=== PATIENT | female | born 1945 | race Caucasian/White ===

== ENCOUNTER 2022-12-04 12:49 | Emergency (ER) | payer MEDICARE ==
[~2022-12-04] VITALS: Ht 157.5 cm; Wt 85.3 kg
[~2022-12-04 12:49] MED LIST: AMLODIPINE BES2.5 MG PO; AMLODIPINE BESYL5 MG PO; AMOX TR-K CLV1 EAC1; ATENOLOL100 MG PO; ATORVASTATIN CA40 MG PO; CALCIUM + VITA1 EACH PO; DIGOXIN125 MCG PO; FAMOTIDINE20 MG PO; FENOFIBRATE48 MG PO; FLUTICASONE PRO16 GM NAS; FLUZONE HI IM; GABAPENTIN100 MG PO; IPRATROPIUM BRO30 ML INH; LEVOTHYROXINE25 MCG PO; LEVOTHYROXINE50 MCG PO; LISINOPRIL20 MG PO; LISINOPRIL40 MG PO; LUTEIN20 MG PO; MAGNESIUM250 M1 PO; METFORMIN HCL1000 MG PO; METOPROLOL SUC100 MG PO; METOPROLOL TART25 MG PO; OMEPRAZOLE20 MG PO; OMEPRAZOLE40 MG PO; PAXIL20 MG PO; PRAVASTATIN SOD20 MG PO; PREDNISOLONE ACE5 ML OPTH; SERTRALINE HCL50 MG PO; TRAMADOL HCL50 MG PO; WARFARIN SODIU2.5 MG PO; ZESTRIL20 MG PO
--- OUTSIDE RECORDS SUMMARY | 2022-12-04 12:50 | XMS ---
PreManage Notification: KATHERINE PRITCHETT Security Algorithm Developer Events No recent Security Events currently on file [facility] There are no care providers on record at this time. Lesly has no Care Guidelines for this patient. [place] VISIT COUNT (12 MO.) 1 YAMILEX Funes TOTAL 1 NOTE: Visits indicate total known visits. ED/C VISIT TRACKING (12 MO.) 12/04/2022 12:49 YAMILEX Gonzalez OR TYPE: Emergency COMPLAINT: - NOSE BLEED INPATIENT VISIT TRACKING (12 MO.) No inpatient visits to display in this time frame [email or web address]
[2022-12-05] MEDS ORDERED: PATADAY2.5 ML OP (12:04)
== END 2022-12-04 19:29 | disposition home or self-care (01) ==
LOC: ED 12:49
DX: R04.0 Epistaxis (principal); Z79.01 Long term (current) use of anticoagulants; I10 Essential (primary) hypertension; E78.00 Pure hypercholesterolemia, unspecified; E11.9 Type 2 diabetes mellitus without complications; Z88.8 Allergy status to other drugs, medicaments and biological substances; Z91.010 Allergy to peanuts; Z91.013 Allergy to seafood; Z88.2 Allergy status to sulfonamides; Z88.6 Allergy status to analgesic agent; Z79.899 Other long term (current) drug therapy; Z79.84 Long term (current) use of oral hypoglycemic drugs
CPT/HCPCS: 30903; 36415; 85025; 85610; 99283-25; J7121

== ENCOUNTER 2023-07-06 10:47 | Observation (INO) | payer MEDICARE, OTHER ==
[~2023-07-06] VITALS: Ht 157.5 cm; Wt 79.5 kg
--- OUTSIDE RECORDS SUMMARY | ~2023-07-06 | XMS | Continuity of Care Document ---
Demographics + + + | Address | [address] | | | [place] [address] | + + + | Preferred Language | Unknown | + + + | Marital Status | | + + + | Christian Affiliation | Unknown | + + + | Race | White | + + + | Ethnic Group | Not or | + + + Author + + + | Author | [facility] | + + + | Organization | [facility] | + + + | Address | [address] | | | [place], [place] [address] | + + + | Phone | | + + + Care Team Providers + + + + | Care Dowel Pin Man Name | Role | Phone | + + + + Unavailable | Unavailable | + + + + Allergies No information. Encounters No information. Functional Status No information. Immunizations No information. Medications No information. Problems + + + + | date | description | facility | + + + + | 2023-04-17 11:30 | ENCOUNTER FOR THERAPEUTIC | [facility] | | | DRUG LEVEL MONITORING | | + + + + | 2023-04-17 11:30 | [facility] (CURRENT) USE OF | [facility] | | | ANTICOAGULANTS | | + + + + | 2023-05-01 11:40 | UNSPECIFIED ATRIAL | [facility] | | | FIBRILLATION | | + + + + | 2023-05-01 11:40 | ENCOUNTER FOR THERAPEUTIC | [facility] | | | DRUG LEVEL MONITORING | | + + + + | 2023-05-01 11:40 | [facility] (CURRENT) USE OF | [facility] | | | ANTICOAGULANTS | | + + + + | 2023-05-01 11:40 | PRESENCE OF PROSTHETIC | [facility] | | | HEART VALVE | | + + + + | 2023-05-15 11:33 | UNSPECIFIED ATRIAL | [facility] | | | FIBRILLATION | | + + + + | 2023-05-15 11:33 | ENCOUNTER FOR THERAPEUTIC | [facility] | | | DRUG LEVEL MONITORING | | + + + + | 2023-05-15 11:33 | [facility] ([facility]) USE [facility] | [facility] | | | ANTICOAGULANTS | | + + + + | 2023-05-15 11:33 | PRESENCE OF PROSTHETIC | [facility] | | | HEART VALVE | | + + + + | 2023-05-29 11:05 | UNSPECIFIED ATRIAL | [facility] | | | FIBRILLATION | | + + + + | 2023-05-29 11:05 | ENCOUNTER FOR THERAPEUTIC | [facility] | | | DRUG LEVEL MONITORING | | + + + + | 2023-05-29 11:05 | [facility] ([facility]) USE [facility] | [facility] | | | ANTICOAGULANTS | | + + + + | 2023-05-29 11:05 | PRESENCE OF PROSTHETIC | [facility] | | | HEART VALVE | | + + + + | 2023-06-12 11:37 | ENCOUNTER FOR THERAPEUTIC | [facility] | | | DRUG LEVEL MONITORING | | + + + + | 2023-06-12 11:37 | [facility] USE [facility] | [facility] | | | ANTICOAGULANTS | | + + + + | 2023-06-26 11:30 | UNSPECIFIED ATRIAL | [facility] | | | FIBRILLATION | | + + + + | 2023-06-26 11:30 | ENCOUNTER FOR THERAPEUTIC | [facility] | | | DRUG LEVEL MONITORING | | + + + + | 2023-06-26 11:30 | [facility] ([facility] USE OF | [facility] | | | ANTICOAGULANTS | | + + + + | 2023-06-26 11:30 | PRESENCE OF PROSTHETIC | [facility] | | | HEART VALVE | | + + + + Procedures No information. Results/Labs No information. Social History +--------+ + + | date | description | facility | +--------+ + + Vital Signs No information."
--- OUTSIDE RECORDS SUMMARY | ~2023-07-06 | XMS | Continuity of Care Document ---
Demographics + + + | Address | [address] | | | [place] [address] | + + + | Preferred Language | Unknown | + + + | Marital Status | | + + + | Sikh Affiliation | Unknown | + + + | Race | White | + + + | Ethnic Group | Not or | + + + Author + + + | Author | [facility] | + + + | Organization | [facility] | + + + | Address | [address] | | | [place], [place] [address] | + + + | Phone | | + + + Care Team Providers + + + + | Care Digital Product Specialist Name | Role | Phone | + [...] + + + | 2023-04-17 11:30 | [facility]CURRENT) USE OF | [facility] | | | ANTICOAGULANTS | | + + + + | 2023-05-01 11:40 | UNSPECIFIED ATRIAL | [facility] | | | FIBRILLATION | | + + + + | 2023-05-01 11:40 | ENCOUNTER FOR THERAPEUTIC | [facility] | | | DRUG LEVEL MONITORING | | + + + + | 2023-05-01 11:40 | [facility] (CURRENT) USE OF | [facility] | | [...] + + + | 2023-05-15 11:33 | [facility] (CURRENT) USE OF | [facility] | | [...] + + + | 2023-05-29 11:05 | [facility] (CURRENT) USE OF | [facility] | | | ANTICOAGULANTS | | + + + + | 2023-05-29 11:05 | PRESENCE OF PROSTHETIC | [facility] | | | HEART VALVE | | + + + + | 2023-06-12 11:37 | ENCOUNTER FOR THERAPEUTIC | [facility] | | | DRUG LEVEL MONITORING | | + + + + | 2023-06-12 11:37 | [facility] (CURRENT) USE OF | [facility] | | | ANTICOAGULANTS | | + + + + | 2023-06-26 11:30 | UNSPECIFIED ATRIAL | [facility] | | | FIBRILLATION | | + + + + | 2023-06-26 11:30 | ENCOUNTER FOR THERAPEUTIC | [facility] | | | DRUG LEVEL MONITORING | | + + + + | 2023-06-26 11:30 | [facility] (CURRENT) USE OF | [facility] | | [...]
[~2023-07-06 10:47] MED LIST changes: +PATADAY2.5 ML OU
[2023-07-06 13:13] LABS: HEMATOCRIT 39.6 % (35.0-50.0); HEMOGLOBIN 12.8 g/dL (12.0-18.0); MCH 28.6 (27-36); MCHC 32.3 g/dl (30-36); MCV 88.4 fl (81-99); PLATELET COUNT 170 K/uL (140-440); RBC 4.48 M/ul (4.3-5.7); RDW 14.1 (10.5-15.0)
[2023-07-06 13:24] LABS: INR 2.7 (0.80-1.30); PROTIME 27.8 Sec (11.2-14.2)
[2023-07-06 13:29] LABS: ALBUMIN 3.5 g/dL (3.4-5.0); ALBUMIN/GLOBULIN RATIO 0.92 (1.1-2.4); BILIRUBIN, TOTAL 0.6 ng/dL (0.2-1.0); BUN/CREATININE RATIO 13.54 (6.0-28.6); CALCIUM 9.3 mg/dL (8.5-10.1); CREATININE, SERUM 0.96 mg/dL (0.55-1.02); PROTEIN, TOTAL 7.3 g/dL (6.4-8.2)
[2023-07-06 13:35] LABS: LACTIC ACID, BLOOD 2.1 mmol/L (0.4-2.0)
[2023-07-06 13:44] LABS: LYMPHOCYTES, MANUAL DIFF 11; MONOCYTES, MANUAL DIFF 9; NEUTROPHILS, MANUAL DIFF 80
[2023-07-06 14:49] LABS: INFLUENZA B NAA NEGATIVE (NEGATIVE); RESPIRATORY SYNCYTIAL VIR NAA NEGATIVE (NEGATIVE)
[2023-07-06 15:38] VITALS: BP 150/80
--- NOTE | 2023-07-06 15:38 | NUR ---
PT ARRIVES TO ROOM VIA STRETCHER AND THIS RN - PT AAO, VS STABLE, AFEBRILE. PT ABLE TO TRANSFER TO BED BY SELF WITH CONTACT ASSIST. DAUGHTER PRESENT AND ABLE TO ASSIST WITH HEALTH HISTORY. PT DENIES NEEDS FOR PAIN MEDICATION AT THIS TIME.
--- NOTE | 2023-07-06 17:02 | NUR ---
PT UP TO BATHROOM TO VOID WITH PHOTOGRAMMETRIC ENGINEER ASSISTANCE - DENIES PAIN WITH URINATION. BACK TO BED. ABD PLACED UNDER WOUND TO COLLECT DRAINAGE, SEROSANG SCANT. FAMILY REMAINS IN ROOM. CALL LIGHT IN REACH.
[2023-07-06] MEDS ORDERED: CRANBERRY500 M3 PO (17:41)
[2023-07-06] MEDS ORDERED: TYLENOL EXTRA500 MG PO (17:41)
[2023-07-06 18:20] VITALS: BP 156/85
[2023-07-06 20:00] VITALS: BP 145/79
--- NOTE | 2023-07-06 20:15 | NUR ---
THIS RN WAS WALKING DOWN THE HALLWAY, pt SEEN SITTING ON EDGE OF BED ON THE PHONE AND ATTEMPTING TO GET OOB TO GO TO THE BATHROOM. pt EDUCATED ON NEED TO USE CALL LIGHT BEFORE GETTING OOB, ASSISTED SBA TO VOID AND VOIDED 500MLS AND BACK TO BED. BED ALARM ON FOR SAFETY, CALL LIGHT IN REACH. FRESH WATER PROVIDED, NO ADDITIONAL NEEDS OR CONCERNS VERBALIZED.
--- NOTE | 2023-07-06 20:16 | NUR ---
PATIENT IN BED RESTING, REPORT GIVEN BY DAY SHIFT RN. MD CALLED TO CLARIFY LACTATE ORDER, AND HE DOES NOT WISH A REDRAW AT THIS TIME.
--- NOTE | 2023-07-06 20:20 | NUR ---
LATE ENTRY: INFORMED BY PRIMARY RN KRISTIN THAT MD WANTS TO CANCEL REPEAT LACTIC, SEE RN NOTE FROM PRIMARY RN FOR FURTHER DETAILS. SPOKE TO TENISHA IN LAB AT 073O, LAB TO CANCEL ORDER ON THEIR END.
--- NOTE | 2023-07-06 22:55 | NUR ---
CALLED IN TO ROOM, PATIENT UP TO BR WITH SBA, TOLERATED WELL, IS NOW BACK TO BED READING A BOOK WITHOUT COMPLAINT. CALL LITH IN REACH. BLOOD SUGAR WAS 189 AND 3 UNITS PER SS GIVEN.
--- NOTE | 2023-07-07 00:01 | NUR ---
PATIENT CALLED, ASSISTED UP TO BR, THEN BRUSHED TEETH AND WASHED FACE. IS NOW BACK TO BED AND GETTING READY TO GO TO SLEEP. CALL LIGHT WITHIN REACH.
[2023-07-07 03:05] VITALS: BP 126/70
--- NOTE | 2023-07-07 03:07 | NUR ---
PATIENT AWAKE AND SBA ASSIST TO BR. VSS, REMAINS AFEBRILE, DENIES PAIN, NORMALLY WEARS CPAP AT BEDTIME, GIVEN 2 LITERS PER NC, PREFERRED THIS OVER OUR CPAP MACHINE WITH FULL FACE MASK. NO FURTHER CHANGE IN ASSESSMENT, ASSISTED BACK INTO BED, CALL LIGHT IN REACH.
[2023-07-07 05:03] LABS: BASOPHILS 0.2 % (0-2); EOSINOPHILS 0.6 % (0-6); HEMATOCRIT 39.3 % (35.0-50.0); HEMOGLOBIN 12.7 g/dL (12.0-18.0); LYMPHOCYTES 13.6 % (24-44); MCH 28.8 (27-36); MCHC 32.3 g/dl (30-36); MCV 89.1 fl (81-99); MONOCYTES 13.1 % (0-12); NEUTROPHILS 72.5 % (39-80); PLATELET COUNT 176 K/uL (140-440); RBC 4.41 M/ul (4.3-5.7); RDW 14.1 (10.5-15.0)
[2023-07-07 05:11] LABS: ANION GAP 14.5 (7-21); BUN/CREATININE RATIO 14.75 (6.0-28.6); CALCIUM 8.7 mg/dL (8.5-10.1); CREATININE, SERUM 0.61 mg/dL (0.55-1.02); POTASSIUM 3.5 mmol/L (3.5-5.1)
[2023-07-07 05:15] LABS: INR 2.78 (0.80-1.30); PROTIME 28.4 Sec (11.2-14.2)
--- NOTE | 2023-07-07 05:24 | NUR ---
PATIENT HAS SLEPT ON AND OFF TONIGHT, ASSISTED UP SEVERAL TIMES TO AMBULATE WITH SBA TO BR. VSS, MINIMAL DISCOMFORT AND REQUIRED NO MEDICATIN FOR PAIN DURING THE NIGHT. GROIN REMAINS RED AND SWOLLEN WITH TUBING THROUGH SITE REMAINING INTACT. RESTING NOW WITH EYES CLOSED AND NO NOTED DISTRESS. CALL LIGHT WITHIN REACH.
--- NOTE | 2023-07-07 07:49 | NUR ---
REPORT RECEIVED FROM JAYSON FOSTER. PT RESTING IN BED, ALERT AND OREINTED. PT DENIES PAIN AND NAUSEA AT THIS TIME. PT DENIES REQUESTS OR COMPLAINTS AT THIS TIME. PT REPORTS SHE IS HOPING TO GO HOME TODAY. REPORTS SHE FEELS "MUCH BETTER NOW." CALL LIGHT WITHIN REACH. BED RAILS UP.
[2023-07-07 09:32] VITALS: BP 117/57
--- NOTE | 2023-07-07 09:33 | NUR ---
Scheduled medications administered. Vitals and I/Os complete. Pt is afebrile, states no pain at this time, "feeling better". Fresh water and coffee provided. Patient on RA, resting in bed reading. Call light in reach.
--- NOTE | 2023-07-07 09:55 | NUR ---
Call light answered, patient requests SBA to BR for void. Patient steady on feet, no further assistance needed.
--- NOTE | 2023-07-07 10:05 | NUR ---
MORNING ASSESSMENT AND MEDICATION DUE. PT UP TO RESTROOM. STEADY ON FEET. PT REPORTS SHE WOULD LIKE TO HAVE A BOWEL MOVEMENT BUT THINKS SHE NEDS A SUPPOSITORY. MD CONSUTLED RELATED TO WOUND NEAR YEYO AREA. STATES OK TO GIVE MIRALAX. PT THEN STATES "IT'S COMING" AND SHE NO LONGER NEEDS MEDICATION. PT REPORTS 1/10 PAIN IN LEFT YEYO AREA "ONLY WHEN IT TOUCHED." PT REPORTS [facility] TYPICALLY HAS BACK PAIN BUT RIGHT NOW THIS IS 0/10/ PT ALER AND OREITNED TO ALL. PT STEADY ON FEET WITH STAND BY ASSIST. LUNG SOUNDS CLEAR. HEART TONES REGULAR. MILD MURMUR HEARD VALVE REPLACEMENT HEARD. ABDOMEN SOFT AND NON TEDNER. BOWEL TONES ACTIVE. REDNESS TO LEFT LABIA CONTIUES, FIRM IN PLACES, T-TUBE DRAIN IN PLACE. PTS DAUGHTER REPORTS "IT LOOKS MUCH BETTER." SMALL AMOUNT OF SEROUSANGUINOUS DRAINAGE SEEN FROM WOUND AREA. DR HANSON TO ROOM FOR ROUNDS, UPDATED ON PT STATUS. PLAN FOR DISCHARGE REVIEWED WITH PT. NO ADDITIOANL REQUESTS OR COMPLAINTS. CALL LIGHT WITHIN REACH. BED RAILS UP. FAMILY AT BEDSIDE.
--- NOTE | 2023-07-07 10:46 | NUR ---
THIS RN TO ROOM TO CHECK ON PT. PT WORKING WITH PHYSICAL THERAPY. PT UP TO CHAIR AND PIVOTING TO COMODE WITH PHYSICAL THERAPIST. PT TRANSFERS WELL. PT REPORTS PAIN REMAINS WELL CONTROLLED AT 5/10. NO ADDITIONAL REQUESTS OR COMPLAINTS. CALL LIGHT WITHIN REACH. PHYSICAL THERAPIST REMAINS AT BEDSIDE.
[2023-07-07] MEDS ORDERED: AMOX TR-K CLV1 EAC1 PO (10:47)
[2023-07-07] MEDS ORDERED: DOXYCYCLINE HY100 MG PO (10:47)
[2023-07-07 11:29] VITALS: BP 143/62
--- NOTE | 2023-07-07 12:06 | NUR ---
PT BEING DISCHARGED PER DR ORDER. PT PROVIDED AND VERBALIZES UNDERSTANDING OF DISCHARGE EDUCATION. DISCHARGE PACKET PROVIDED TO PT. PT AND DAUGHTER, JAIRO HAD QUESTIONS ABOUT METFORMIN AND COUMADIN, PHARMACIST AT BEDSIDE TO ANSWER QUESTIONS. IV DC'D WITH NO COMPLICATION. PT REPORTS NO PAIN. PT VERBALIZES UNDERSTANDING OF PLAN OF CARE AND FOLLOW UP APPOINTMENTS. PT'S DAUGHTER JAIRO HERE TO TAKE HER FROM HOSPITAL. PT AMBULATORY. PT WHEELED TO FRONT OF HOSPITAL TO GO MEET DAUGHTER.
== END 2023-07-07 12:30 | disposition home or self-care (01) ==
LOC: ED 10:47 → MS 10:48
PROVIDERS: Emergency Medicine; ADMIT Family Medicine; ATTEND Family Medicine
PROC: 0WJN0ZZ Inspection of Female Perineum, Open Approach (ICD-10-PCS; principal; 2023-07-06)
DX: L02.214 Cutaneous abscess of groin (principal); L03.314 Cellulitis of groin; I10 Essential (primary) hypertension; E78.00 Pure hypercholesterolemia, unspecified; E11.9 Type 2 diabetes mellitus without complications; I25.10 Atherosclerotic heart disease of native coronary artery without angina pectoris; I48.91 Unspecified atrial fibrillation; E07.9 Disorder of thyroid, unspecified; Z79.01 Long term (current) use of anticoagulants; Z88.2 Allergy status to sulfonamides; Z79.84 Long term (current) use of oral hypoglycemic drugs
CPT/HCPCS: 36415; 56405; 80048; 80053; 83605; 85025; 85610; 87040; 87070; 87075; 87205; 87502; 94760; 96376; 99284-25; C9803; G0378; J0878; J1815; U0002

== ENCOUNTER 2023-11-22 08:54 | Day surgery (SDC) | payer MEDICARE, OTHER ==
[2023-11-19 09:35] VITALS: BP 161/75
[~2023-11-22] VITALS: Ht 154.9 cm; Wt 80.5 kg
--- NOTE | 2023-11-22 07:51 | NUR ---
SPOKE W/DR. LOMELI REGARDING PTS HX OF AORTIC VALVE REPLACEMENT TO DISCUSS PRE-PROCEDURE ABX CHOICE. VERBAL ORDER RECEIVED TO DC ANCEF AND GIVE 1 GM AMPICILLIN AND 80MG GENTAMICIN. ORDER PLACED IN EMAR.
[~2023-11-22 08:54] MED LIST changes: +AMOX TR-K CLV1 EAC1 PO; +AMPICILLIN SOD IV ONE; +CEFAZOLIN SODIUM 2 GM/20 ML SYR IV SCH; +CRANBERRY500 M3 PO; +DOXYCYCLINE HY100 MG PO; +ENOXAPARIN40 MG/0.4 SUB-Q; +GENTAMICIN SULFATE IV ONE; +HEParin SOD (PORCINE) 5,000 UNIT/0.5 ML SYR SUB-Q SCH; +IBLOOD GLUCOSE TEST STRIP 1 EA TEST VI PRN; +LACTATED RINGER'S 1,000 ML IV SCH; +LIDOCAINE HCL 1% 5 ML SDV INJ ONE; +SODIUM CHLORIDE 0.9% IV ONE; +TYLENOL EXTRA500 MG PO
[2023-11-22 09:05] VITALS: BP 170/84
[2023-11-22 09:50] LABS: INR 1.12 (0.80-1.30)
[2023-11-22] MEDS ORDERED: GENTAMICIN SULFATE 160 MG in DEXTROSE 5% 100 ML IV ONE (10:00)
--- NOTE | 2023-11-22 10:06 | NUR ---
[id number] WITH DR. LOMELI REGARDING PHARMCIST INQUIRING INTO ORDERED GENTAMYCIN DOSE OF 80MG. EXPLAINED THAT GENTAMYCIN IS USUALLY DOSED AT 5MG/KG AND PT IS APPROX 80KG AND WOULD USUALLY RECEIVE 400MG DOSE. DR. LOMELI ORDERED 160MG DOSE INSTEAD. UPDATED PTS EMAR TO REFLECT CHANGE IN DOSE AND PHARMACY WAS INFORMED THAT THIS IS THE DOSE DR. LOMELI WANTS GIVEN. ALSO SPOKE WITH DR. LOMELI ABOUT PT CURRENTLY BEING BRIDGED ON LOVENOX WITH PRE-OP ORDERS OF HEPARIN IN PLACE. DR. LOMELI GAVE VERBAL TO DC HEPARIN ORDER AND NOT TO ADMINISTER. EMAR UPDATED TO REFLECT VERBAL ORDER. PT/INR RESULTS BACK WITH PT OF 14 AND INR 1.12. INFORMED BOTH ANESTHESIA AND DR. LOMELI WHO STATE THIS IS ACCEPTABLE FOR THEM TO PROCEED. IMAGING WAS CALLED AND NOTIFIED PT IS READY FOR THEM.
--- NOTE | 2023-11-22 10:27 | NUR ---
PT LEFT WITH IMAGING DEPARTMENT IN A WHEELCHAIR AND ABX INFUSING ON A PUMP.
[2023-11-22] MEDS ORDERED: propofoL 200 MG/20 ML VIAL ONE (11:18)
[2023-11-22] MEDS ORDERED: KETAMINE in NS 50 MG/5 ML SYR ONE (11:18)
[2023-11-22] MEDS ORDERED: ondansetron HCL 4 MG/2 ML VIAL ONE (11:18)
[2023-11-22] MEDS ORDERED: fentaNYL citrate 100 MCG/2 ML VIAL ONE (11:18)
[2023-11-22] MEDS ORDERED: MAGNESIUM SULFATE 1 GM/2 ML VIAL ONE (11:18)
[2023-11-22] MEDS ORDERED: DEXAMETHASONE SOD PHOS 4 MG/ML VIAL ONE (11:18)
[2023-11-22] MEDS ORDERED: dexmedeTOMIDine HCl 200 MCG/2 ML VIAL ONE (11:18)
[2023-11-22] MEDS ORDERED: SODIUM CHLORIDE 0.9% 40 ML IV ONE (11:19)
[2023-11-22] MEDS ORDERED: ACETAMINOPHEN 1,000 MG/100 ML VIAL ONE (11:19)
[2023-11-22] MEDS ORDERED: LIDOCAINE HCL 2% 5 ML SDV ONE (11:19)
[2023-11-22] MEDS ORDERED: ROCURONIUM BROMIDE 50 MG/5 ML SYR ONE (11:19)
[2023-11-22] MEDS ORDERED: ePHEDrine sulfate 50 MG/ML AMP ONE (12:39)
[2023-11-22] MEDS ORDERED: SODIUM CHLORIDE 0.9% 20 ML IV ONE (12:57)
[2023-11-22] MEDS ORDERED: VASOPRESSIN 20 UNITS/ML VIAL ONE (12:57)
[2023-11-22] MEDS ORDERED: fentaNYL citrate 100 MCG/2 ML VIAL IV PRN (13:45)
[2023-11-22] MEDS ORDERED: ondansetron HCL 4 MG/2 ML VIAL IV PRN (13:45)
[2023-11-22] MEDS ORDERED: IBLOOD GLUCOSE TEST STRIP 1 EA TEST VI PRN (13:45)
[2023-11-22] MEDS ORDERED: NALOXONE HCL 0.4 MG SYR IV PRN (13:45)
[2023-11-22] MEDS ORDERED: PERCOCET 7.5-31 EACH PO (13:57)
[2023-11-22] MEDS ORDERED: TYLENOL EXTRA500 MG PO (13:57)
--- NOTE | 2023-11-22 13:59 | NUR ---
11/22/23 1359 Madeline,Esther 1338 PT ARRIVED TO PACU ON 8L VIA MASK, RESP EVEN AND UNLABORED. JAW THURSDT USED OFF AND ON TO MAINTAIN AIRWAY. 1342 PT WAKES TO TACTILE STIMULI AND IS REORIENTED TO PACU. 1344 O2 REMOVED AND PT ENCOUARGED TO DEEP BREATHE OFF AND ON. 1352 PT REPORTS PAIN "JUST A LITTLE BIT" AND NO NAUSEA. WOODWIND INSTRUMENT REPAIRER GIVING PAIN MEDICATION. O2 SAT LOW TO MID 90S. 1356 PT REPORTS NO CHANGE IN PAIN LEVEL. PT RESTING WITH EYES OPEN LOOKING AROUND.
[2023-11-22] MEDS ORDERED: OXYCODONE/APAP 7.5/325 TAB PO PRN (14:30)
[2023-11-22] MEDS ORDERED: ACETAMINOPHEN 500 MG TAB PO PRN (14:30)
[2023-11-22] MEDS ORDERED: HYDROmorphone HCL 1 MG/ML SYR IV PRN (14:45)
[2023-11-22 15:25] VITALS: BP 143/68
--- NOTE | 2023-11-22 15:54 | NUR ---
PT RETURNED TO DAY SURGERY FROM PACU AT APPROX 1520 ON 2L/NC WITH SATURATIONS OF 97-99%. OMAYRA RN FROM PACU REPORTS PT WITH 20ML OF EBL. VISUALIZED SURGICAL INCISIONS WITH BASKET BOTTOM MACHINE OPERATOR UPON RETURN. PT WITH 2 SURGICAL INCISIONS, ONE ON THE LATERAL L BREAST AND ONE IN THE L AXILLA. BOTH SURGICAL WOUNDS ARE DRESSED WITH STERI STRIPS AND ACTICOAT. SMALL AMT OF SS DRAINAGE TO L AXILLA SURGICAL WOUND DRSG SEEN. BOTH DRSG INTACT. PT WITH CONCNERS OF HER PAIN. UPON RETURN, PT REPORTS HER PAIN IS AT A 0/10, MOMENTS LATER SHE REPORTED "OH THE PAIN IS BUILDING, ITS THE WHOLE BREAST NOW". WHEN ASKED TO RATE HER PAIN, SHE RATES IT AT A 2. THIS IS BELOW HER PREVIOUSLY STATED ACCEPTABLE LEVEL OF 3/10. EDUCATED PT ON HER SURGERY AND THAT SOME PAIN IS TO BE EXPECTED WITH THIS TYPE OF SURGERY, BUT THAT THE GOAL IS TO NOT LET IT BECOME SO BAD OR OUT OF CONTROL THAT YOU ARE UNABLE TO FUNCTION. EXPLAINED TO PT THAT SHE IS NOT LIKELY GOING TO BE "PAIN FREE" WITH MOVEMENT, BUT LONG THE PAIN IS NOT BAD ENOUGH TO INHIBIT OR PREVENT HER FROM MOVING, THAT IS A MORE REALISTIC GOAL. NANCY AT PTS BEDSIDE AND INQUIRING ABOUT POST OF DIRECTIONS AND PAIN MEDICATIONS. UPDATED PT AND HER AUGHTER ON DR. LOMELI PROVIDING PERCOCET RX. GIVEN TO NANCY WHO LEFT TO TAKE RX TO PHARMACY AND GO HOME AND PACK AN OVERNIGHT BAG, SHE IS PLANNING TO STAY OVER NIGHT WITH PT TONIGHT. NANCY INQUIRED IF THERE WOULD BE ENOUGH TIME FOR THIS, AND REASSURED HER THAT PT WOULD BE HERE FOR AT LEAST ANOTHER HOUR, IF NOT LONGER. PT RETRUNED FROM PACU EATING ICE CHIPS. GIVEN ICE WATER, CRACKERS, AND CHOCOLATE PUDDING. BILAT BEDRAILS UP. BED IN LOW POSTION WITH WHEELS LOCKED. CALL LIGHT WITHIN PTS REACH AND INSTRUCTED PT TO CALL. PT DENIES ANY QUESTIONS OR FURTHER NEEDS AT THIS TIME.
[2023-11-22 16:19] VITALS: BP 143/71
--- NOTE | 2023-11-22 16:35 | NUR ---
INTO PTS ROOM FOR ASSESSMENT. NANCY HAS RETURNED AND IS AT PTS BEDSIDE. PT HAS EATEN 2 CUPS OF PUDDING, 4 PACKS OF CRACKERS, AND HAS TAKEN 600ML ICE WATER. PT DENIES NAUSEA AND APPEARS TO HAVE TOLERATED SOLIDS AND FLUIDS WELL W/O ISSUES. PT WITH O2 SATURATION OF 99% ON 2L/NC. TURNED 02 OFF AND MONITORED SATURATIONS OVER THE NEXT 15 MINS. O2 SATS REMAINED STABLE AT 94-99% ON RA. PTS POST OP COMPRESSION KENY PLACED TO HELP STABILIZE BREAST AND MANAGE DISCOMFORT. PT AGREEABLE TO WALK TO RESTROOM AND ATTEMPT VOIDING. ASSITED PT TO SITTING UP ON EDGE OF BED. PT WITH SOME "LIGHTHEADEDNESS". INSTRUCTED PT TO SIT FOR A COUPLE MINS AND SEE IF IT IMPROVES BEFORE MOVING ANY FURTHER. PT COMPLIED WITH REQUEST AND REPORTED RESOLVING. PT ASSITED TO STANDING POSITION AND AMBULATED TO TOILET WITH 1 PERSON MIN ASSIST. PT VOIDING LARGE AMT OF PALE, YELLOW, CLR URINE. ASSITED PT IN AMBULATING BACK TO ROOM. PT REPORTING PAIN OF 1/10 THAT DIMINSHED WITH A FEW MINS REST. CALL LIGHT WITHIN PTS REACH.
[2023-11-22 17:37] VITALS: BP 145/65
--- NOTE | 2023-11-22 17:55 | NUR ---
INTO PTS ROOM FOR REASSEMENT AND DISCHARGE TEACHING. PT REPORTS IMPROVEMENT IN PAIN AFTER PERCOCET WAS GIVEN. APPEARS TO HAVE TOLERATED MED W/O ISSUES NOTED. PT INSTRUCTED TO CALL DR. LOMELI OFFICE ON SUNDAY AND SCHEDULED HER 2 WEEK POST-OP APPT, OFFICE HAS CLOSED TODAY. PT ALSO INSTRUCTED TO HAVE PT/INR DRAWN ON 11/27/23 AT 1000. IV REMOVED, TIP INTACT, PRESSURE DRSG APPLIED WITH GAUZE AND COBAN. PT INSTRUCTED THAT SHE MAY REMOVE IN 15-20 MINS. PT DRESSED WITH DAUGHTERS ASSISTANCE, AMBULATED TO RESTROOM BEFORE LEAVING UNIT IN WC. PT WAS ABLE TO VOID ANOTHER 125 ML PALE, CLR, YELLOW URINE IN ADDITION TO LARGE VOID EARLIER IN DAY POST-OP. PT TRASNPORTED OFF UNIT TO PASSENGER SIDE OF [employer] VEHICLE VIA WC AT APPROX 1755. ALL QUESTIONS AWNSWERED. PT TOOK ALL BELONGINGS WITH HER.
--- NOTE | 2023-11-25 09:47 | OR ---
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 PROCEDURES: 1. Injection of methylene blue dye for sentinel lymph node identification. 2. Left deep axillary sentinel lymph node biopsies (three at minimum). 3. Left partial mastectomy with BING Job Press Operator localization. ANESTHESIA: General LMA, Ken Pascual, ENGINEERING DESIGN MANAGER and local 10 mL of 0.25% Marcaine with epinephrine. INDICATION: This is a 78-year-old white woman is a patient of Dr. Denise Ku. She is known to have aortic valve replaced with a bioprosthetic valve for severe aortic stenosis. Her most recent echocardiogram showed mild decrease in left ventricular function and moderate aortic stenosis with regurgitation. She is chronically anticoagulated with Coumadin. She was diagnosed based on abnormal imaging study of the upper outer aspect of the left breast with an image guided biopsy showing infiltrating ductal carcinoma of the breast, which was ER, CT positive. She does have scattered microcalcifications throughout the breast. Her options of management regarding her newly diagnosed left breast cancer have been reviewed with her. She wishes to pursue a breast conservation approach, which I have recommended. Since the lesion is nonpalpable, imaging guidance will be needed for partial mastectomy. She is admitted at this time to undergo left partial mastectomy as well as sentinel lymph node biopsy of the left axilla. Localization will be undertaken by a BING Job Press Operator approach today. FINDINGS: The lesion in question was well localized with the BING Job Press Operator device. The excised specimen confirmed that the marking clip as well as the BING Job Press Operator device was in the central portion of the excised breast. The area excised was firm. The margins excised are clinically negative. The location of the lesion was in the upper outer aspect of the left breast. Electronically Signed By: TAURUS LOMELI MD 11/25/23 0947 PATIENT NAME: KATHERINE PRITCHETT OPERATIVE REPORT DATE OF : 43 REPORT #: [id number] PHYSICIAN: TAURUS LOMELI MD PCP: DENISE KU MD REPORT IS CONFIDENTIAL AND NOT TO BE RELEASED WITHOUT AUTHORIZATION [facility] [address] [place] [id number] Signed Good localization of the axillary lymph nodes was noted with both radionuclide and methylene blue dye. At least three sentinel nodes were excised, possibly more. There was no evidence of suspicion of the axilla otherwise. DESCRIPTION OF PROCEDURE: The patient was brought to the operating room having undergone BING Job Press Operator localization of the offending lesion in the upper outer aspect of the left breast. She was given a general anesthetic by LMA technique. Note that she is undergoing bridge therapy (Lovenox upon withdrawal of her Coumadin). No Lovenox was given today as per protocol. She received preoperative antibiotic ampicillin and gentamicin on the basis of her aortic valve replacement in the past. After satisfactory general endotracheal anesthesia, the left breast was prepared with a chlorhexidine solution and draped sterilely. Review of the images had been undertaken. Localization in the upper outer aspect of the left breast with the BING Job Press Operator probe was undertaken easily identifying the area of strong signal. An incision was made in the upper outer aspect of the left breast and dissection carried through the subcutaneous tissue with electrocautery. With meticulous care, localization of the offending lesion was undertaken with the BING Job Press Operator probe and wide resection undertaken. Prior to explantation from the breast itself, a short stitch was used to lois the superior margin and a long stitch to the lateral margin. The specimen was explanted and passed for specimen radiograph which later confirmed that the BING Job Press Operator device as well as the clip was in the central portion of the excised breast tissue. Irrigation was undertaken in the excised site of the upper outer aspect of the breast and hemostasis assured with electrocautery. The wound was packed fully with gauze. Not mentioned previously was the injection of approximately 1 mL of methylene blue dye in the subepithelial space in the upper outer aspect near the areolar margin. She had undergone radionuclide injection in Radiology as well. Using the C-Trak probe, the area of the axilla with maximum uptake was incised transversely. Dissection carried through the subcutaneous tissue and using blunt dissection, the dissection carried down into the depths of the axilla. Lymphatic channels were identified with a blue dye easily identifying the 1st sentinel lymph node, which was slightly enlarged, but not particularly worrisome in any way. Clips were applied to the lymphatic channels and the lymph node excised and passed as sentinel lymph node #1. Additional interrogation of the axilla showed additional two lymph nodes, possibly more in a cephalad to the initial one for which, similar dissection was undertaken. Specimen #2 include sentinel lymph node 2 and 3 and possibly more. Additional interrogation of the axilla showed some radionuclide uptake in the apex of the axilla. Blunt dissection in this area was undertaken, however, the area was so high in the axilla, indeed higher and more medial than the axillary vein itself that further dissection was deemed inadvisable. Additional interrogation of the axilla laterally and medially showed no additional Electronically Signed By: TAURUS LOMELI MD 11/25/23 0947 PATIENT NAME: KATHERINE PRITCHETT OPERATIVE REPORT DATE OF : 43 REPORT #: [id number] PHYSICIAN: TAURUS LOMELI MD PCP: DENISE KU MD REPORT IS CONFIDENTIAL AND NOT TO BE RELEASED WITHOUT AUTHORIZATION [facility] [address] [place] [id number] Signed uptake. Irrigation was undertaken and the wound was then packed with gauze. The sentinel lymph nodes were sent for permanent pathology. Reinspection of the upper outer aspect of the breast was undertaken. The radiologist confirmed that the offending lesion was in the specimen and I reviewed the imaging studies myself confirming this. The parenchyma of the breast was then reapproximated with interrupted 2-0 Vicryl and a running subcuticular 3-0 Vicryl for the skin. Steri-Strips were applied as was an Acticoat dressing. The left axillary wound was similarly closed including application of Steri-Strips and an Acticoat dressing. The patient was ultimately extubated and transferred to the recovery room in good condition having suffered no complications. Sponge, needle, and instrument counts were reported as correct x3. MD JAYSHREE Norris/DON /[id number] cc: Raquel Cadena MD, PH.D. Dr. Denise Hu MD Copies: RAQUEL CADENA MD, ROBERT C MD ~ Electronically Signed By: TAURUS LOMELI MD 11/25/23 0947 PATIENT NAME: KATHERINE PRITCHETT ALBERTO OPERATIVE REPORT DATE OF : 43 REPORT #: [id number] PHYSICIAN: TAURUS LOMELI MD PCP: DENISE KU MD REPORT IS CONFIDENTIAL AND NOT TO BE RELEASED WITHOUT AUTHORIZATION
--- NOTE | 2023-11-29 14:47 | PATH ---
[facility] [address] [place], [place] [address] Signed THIS IS AN ADDENDUM REPORT SPECIMEN(S): A LEFT BREAST UPPER OUTER QUADRANT SPECIMEN(S): B SENTINEL LYMPH NODE #1 SPECIMEN(S): C SENTINEL LYMPH NODE #2, #3 SPECIMEN SOURCE: A. LEFT BREAST UPPER OUTER QUADRANT B. SENTINEL LYMPH NODE #1 C. SENTINEL LYMPH NODE #2, #3 . CLINICAL HISTORY: Infiltrating ductal breast carcinoma FINAL PATHOLOGIC DIAGNOSIS: A. Breast, left upper outer quadrant, excision: - Invasive ductal carcinoma, see synoptic report B. Lymph node, sentinel #1, excision: - One lymph node with macrometastatic carcinoma (1/1) C. Lymph node, site, excision: - One lymph node, negative for metastatic carcinoma (0/1) INVASIVE CARCINOMA OF THE BREAST: Resection Applies To: A-C SPECIMEN Procedure: Excision (less than total mastectomy) Specimen Laterality: Left TUMOR Tumor Site: Upper outer quadrant Histologic Type: Invasive carcinoma of no special type (ductal) Glandular (Acinar) / Tubular Differentiation: Score 2 Nuclear Pleomorphism: Score 2 Mitotic Rate: Score 1 Overall Grade: Grade 1 (scores of 3, 4 or 5) Tumor Size: Greatest dimension of largest invasive focus (Millimeters) - 14 mm Ductal Carcinoma In Situ (DCIS): Not identified Lymphatic and / or Vascular Invasion: Present Microcalcifications: Present in invasive carcinoma, Present in non-neoplastic tissue Treatment Effect in the Breast: No known presurgical therapy PATIENT NAME: AMIE WEBSTER PATHOLOGY DATE OF : 43 REPORT #: [id number] PHYSICIAN: AMAYA RIDDLE PCP: CHERYL KU MD REPORT IS CONFIDENTIAL AND NOT TO BE RELEASED WITHOUT AUTHORIZATION [facility] [address] [place], [place] [address] Signed MARGINS Margin Status for Invasive Carcinoma: All margins negative for invasive carcinoma Distance from Invasive Carcinoma to Closest Margin: 1 mm Closest Margin(s) to Invasive Carcinoma: Medial REGIONAL LYMPH NODES Regional Lymph Node Status: Tumor present in regional lymph node(s) Number of Lymph Nodes with Macrometastases - 1 Number of Lymph Nodes with Micrometastases - 0 Number of Lymph Nodes with Isolated Tumor Cells - 0 Size of Largest Omayra Metastatic Deposit - 4 mm Extranodal Extension - Not identified Total Number of Lymph Nodes Examined (sentinel and non-sentinel): 2 Number of [place]fall Nodes Examined: 2 pTNM CLASSIFICATION (AJCC 8th Edition) Reporting of pT, pN, and (when applicable) pM categories is based on information available to the pathologist at the time the report is issued. As per the AJCC (Chapter 1, 8th Ed.) it is the managing physician's responsibility to establish the final pathologic stage based upon all pertinent information, including but potentially not limited to this pathology report. pT Category: pT1c pN Category: pN1a N Suffix: (sn) Breast Biomarker Testing Performed on Previous Biopsy: Estrogen Receptor (ER) Status: Positive (greater than 10% of cells demonstrate nuclear positivity) Percentage of Cells with Nuclear Positivity: 81-90% Progesterone Receptor (PgR) Status: Positive Percentage of Cells with Nuclear Positivity: 31-40% HER2 (by immunohistochemistry): Negative (Score 1+) Testing Performed on COMMENT: As part of [employer]' Quality Improvement Program, this case was reviewed by another member of our pathology staff. [facility] MICROSCOPIC EXAMINATION: Histologic sections of all submitted blocks are examined by light microscopy. These findings, together with the gross examination, support the pathologic PATIENT NAME: AMIE WEBSTER PATHOLOGY DATE OF : 43 REPORT #: [id number] PHYSICIAN: AMAYA RIDDLE PCP: CHERYL KU MD REPORT IS CONFIDENTIAL AND NOT TO BE RELEASED WITHOUT AUTHORIZATION [facility] [address] [place] [id number] Signed diagnosis. GROSS DESCRIPTION: A. The specimen, labeled and designated "Ladan Webster" and designated on the requisition "left upper outer quadrant breast short stitch superior long stitch lateral," is received in formalin and consists of an oriented portion of fibroadipose tissue (38 g, 6.0 cm superior to inferior, 4.7 cm anterior to posterior, 3.0 cm medial to lateral). There is a short stitch marking superior and a long stitch marking lateral. The specimen is inked as follows: Blue= Superior Green = Inferior Yellow = Anterior Black = Posterior Red = Medial Brown = Lateral The specimen is serially sectioned from inferior to superior into 11 slices to reveal a white-martinez firm ill-defined stellate mass (1.4 x 1.3 x 1.1 cm) in slices 6-8. The mass contains a circular clip and localization device and is located 0.1 cm from the medial margin, 1.1 cm from the posterior margin, 1.2 cm from the lateral margin, 2.0 cm from the anterior margin, 2.3 cm from the superior margin, and 2.5 cm from the inferior margin. The remaining cut surface shows yellow-martinez fatty to white-martinez dense fibrous cut surface (80% fibrous). Business Area Director sections are submitted. Cassette Summary: (A1) slice one, inferior margin, perpendicularly sectioned (A2) slice three with dense fibrous tissue (A3) slice five adjacent to mass (A4) slice six, mass to medial (A5) slice seven, mass to medial and lateral (A6-A8) mass with closest posterior and anterior (A9) slice nine, adjacent to mass (A10) slice 11, superior margin, perpendicular sections Cold ischemic time: 13 minutes The tissue was fixed in formalin for 20 hours B. The specimen, labeled and designated "DanieleVikram sepulveda" and designated on the requisition "sentinel node #1," is received in formalin and consists of a portion of yellow-martinez fatty tissue (3.2 x 2.5 x 1.4 cm in aggregate) containing one blue tinted possible lymph node (2.5 cm in PATIENT NAME: AMIE WEBSTER PATHOLOGY DATE OF : 43 REPORT #: [id number] PHYSICIAN: AMAYA PATHOLOGY PCP: CHERYL KU MD REPORT IS CONFIDENTIAL AND NOT TO BE RELEASED WITHOUT AUTHORIZATION [address] [address] Signed greatest dimension). The possible lymph node is serially sectioned and submitted entirely in cassette B1-B3. C. The specimen, labeled and designated "[place], C" and designated on the requisition "sentinel node #2 and #3," is received in formalin and consists of a portion of yellow-martinez fatty tissue (4.0 x 2.5 x 1.4 cm) containing two martinez to blue tinted possible lymph nodes (0.4 and 2.4 cm in greatest dimension). The specimen is submitted entirely. Cassette Summary: (C1) one possible lymph node, intact (C2-C4) one possible lymph node, serially sectioned AC (under the direct supervision of a pathologist) The Gross Description was prepared using a voice recognition system. The report was reviewed for accuracy; however, sound-alike word errors, addition and/or deletions may occur. If there is any question about this report, please contact Client Services. ADDITIONAL NOTES: Immunohistochemical and/or in situ hybridization studies if performed in this case included appropriate positive controls that reacted as expected. This test was developed and its performance characteristics determined by [employer]. It has not been cleared or approved by the U.S. Food and Drug Administration. The FDA has determined that such clearance or approval is not necessary. This test is used for clinical purposes. It should not be regarded as investigational or for research. [employer] [facility] is certified under the Clinical Laboratory Improvement Amendments of 1988 (CLIA) as qualified to perform high complexity clinical laboratory testing. PERFORMING LABORATORY: Technical component was performed by [facility], [address] [place] [id number] (CLIA# [id number]). Professional interpretation was performed by [facility] [address] [place] [phone] [id number] REASON FOR ADDENDUM: To document review of material for external testing. ADDENDUM COMMENT: At the request of Dr. Hal Hu, archived slides and blocks for case [id number] are retrieved on Amie Webster and are reviewed by a pathologist to assess adequacy for Oncotype Dx for PATIENT NAME: AMIE WEBSTER PATHOLOGY DATE OF : 43 REPORT #: [id number] PHYSICIAN: AMAYA PATHOLOGY PCP: CHERYL KU MD REPORT IS CONFIDENTIAL AND NOT TO BE RELEASED WITHOUT AUTHORIZATION [facility] [address] [facility] [place] [address] Signed Breast testing. Block A5 is sent to [facility]. DF:slc Professional interpretation was performed by [employer] [facility], [facility], [address] [place] [id number] (CLIA#: [id number]) Diagnostician: Elvis Valentine MD Pathologist Diagnostician: Nahum Solorio DO Pathologist Electronically Signed 11/29/2023 Copies: ~ PATIENT NAME: AMIE WEBSTER PATHOLOGY DATE OF : 43 REPORT #: [id number] PHYSICIAN: AMAYA PATHOLOGY PCP: KINGS,CHERYL MD REPORT IS CONFIDENTIAL AND NOT TO BE RELEASED WITHOUT AUTHORIZATION
== END 2023-11-22 18:00 | disposition home or self-care (01) ==
LOC: DS 08:54
PROVIDERS: Nurse Anesthetist, Certified Registered; ATTEND Surgery
PROC: 0HBU0ZZ Excision of Left Breast, Open Approach (ICD-10-PCS; principal; 2023-11-22 11:00)
PROC: 07B60ZX Excision of Left Axillary Lymphatic, Open Approach, Diagnostic (ICD-10-PCS; 2023-11-22 11:00)
DX: C50.412 Malignant neoplasm of upper-outer quadrant of left female breast (principal); C77.3 Secondary and unspecified malignant neoplasm of axilla and upper limb lymph nodes; Z17.0 Estrogen receptor positive status [ER+]; I48.20 Chronic atrial fibrillation, unspecified; H51.8 Other specified disorders of binocular movement; Z95.4 Presence of other heart-valve replacement; J45.909 Unspecified asthma, uncomplicated; E11.9 Type 2 diabetes mellitus without complications; I10 Essential (primary) hypertension; G47.30 Sleep apnea, unspecified; Z88.5 Allergy status to narcotic agent; Z88.2 Allergy status to sulfonamides; Z79.84 Long term (current) use of oral hypoglycemic drugs; Z79.01 Long term (current) use of anticoagulants; Z79.899 Other long term (current) drug therapy
CPT/HCPCS: 00400; 36415; 76098; 85610; 88307; J0131; J0290; J1100; J1170; J1580; J2001; J2405; J2704; J3010; J3475; J3490; J7121; Q9968

== ENCOUNTER 2024-02-12 11:31 | Day surgery (SDC) | payer MEDICARE, OTHER ==
[~2024-02-12] VITALS: Ht 154.9 cm; Wt 81.7 kg
[~2024-02-12 11:31] MED LIST changes: +AMPICILLIN SOD 2 GM in SODIUM CHLORIDE 0.9% 100 ML IV SCH; -AMPICILLIN SOD IV ONE; -CEFAZOLIN SODIUM 2 GM/20 ML SYR IV SCH; +GENTAMICIN SULFATE 160 MG in DEXTROSE 5% 100 ML IV SCH; -GENTAMICIN SULFATE IV ONE; -HEParin SOD (PORCINE) 5,000 UNIT/0.5 ML SYR SUB-Q SCH; +MIDAZOLAM HCL 5 MG/5 ML VIAL IV PRN; +PERCOCET 7.5-31 EACH PO; -SODIUM CHLORIDE 0.9% IV ONE; +fentaNYL citrate 100 MCG/2 ML VIAL IV PRN
[2024-02-12 12:10] VITALS: BP 154/76
[2024-02-12] MEDS ORDERED: MIDAZOLAM HCL 5 MG/5 ML VIAL ONE (13:54)
[2024-02-12] MEDS ORDERED: fentaNYL citrate 100 MCG/2 ML VIAL ONE (13:55)
--- NOTE | 2024-02-12 14:41 | NUR ---
02/12/24 1441 Melinda Winston 1432 PT ARRIVES TO THE PACU. PT BREATHING EVEN AND UNLABORED. VSS. PT AWAKE AND ABLE TO TALK WITH NURSE AT BEDSIDE. PT REPORTS NO PAIN OR NAUSEA. PT REORIENTED TO PACU. PT IN LEFT LATERAL POSITION AND ON 3L OF O2.
[2024-02-12 15:16] VITALS: BP 129/68
--- NOTE | 2024-02-16 10:52 | OR ---
[facility] [address] [place], [place] [address] Signed DATE OF OPERATION: 02/12/2024 SURGEON: Taurus Lomeli MD PREOPERATIVE DIAGNOSES: 1. Family history of colon cancer in mother. 2. History of hyperplastic polyp 2016. 3. History of recent left breast cancer with partial mastectomy and radiation therapy. 4. Chronic anticoagulation (Coumadin). POSTOPERATIVE DIAGNOSES: Small polyp, left colon, excised and sigmoid diverticulosis. PROCEDURE: Total colonoscopy to cecum with cold morcellation polypectomy x1. ANESTHESIA: Intravenous sedation, fentanyl 100 mcg and Versed 4 mg. Preoperative antibiotics, ampicillin and gentamicin and bridge therapy with Lovenox. INDICATION: This 78-year-old white woman is a patient of Denise Ku MD. She has undergone breast cancer treatment by nd in November of this year. She is now completing radiation therapy following lumpectomy and sentinel lymph node biopsy. The patient has family history of colon cancer in her mother. Her last colonoscopy was in 2015. She had a hyperplastic polyp of the rectum at that time. She is currently symptom-free regarding the colon having no bleeding, diarrhea or constipation. She has been initiated on bridge therapy and transitioned from Coumadin and given preoperative antibiotics as well. The risk of bleeding, infection, and perforation related to colonoscopy was reviewed with her. She understands and wished to proceed. FINDINGS: The prep was good. Complete colonoscopy was undertaken of the cecum. There was only one small polyp of the left colon which was excised. There were sigmoid diverticula. There were no other findings of concern. PROCEDURE IN DETAIL: The patient was brought to the endoscopy suite and placed in the lateral decubitus position. She was given intravenous sedation to the point of slurred speech and Electronically Signed By: TAURUS LOMELI MD 02/16/24 1052 PATIENT NAME: KATHERINE PRITCHETT OPERATIVE REPORT DATE OF : 43 REPORT #: [id number] PHYSICIAN: TAURUS LOMELI MD PCP: DENISE KU MD REPORT IS CONFIDENTIAL AND NOT TO BE RELEASED WITHOUT AUTHORIZATION [facility] [address] [place], [place] [address] Signed nystagmus with full cardiopulmonary monitoring. Preoperative antibiotics ampicillin and gentamicin had been given. A transition with bridge therapy with Lovenox had been outlined in lieu of her daily Coumadin. After satisfactory intravenous sedation, digital rectal examination was performed, which was normal. Olympus video colonoscope was passed in the rectum and manipulated throughout the colon noting diverticula of the sigmoid. Scope was ultimately advanced to the cecum. The ileocecal valve and appendiceal orifice were normal. Scope was then withdrawn and examination showed no sign of abnormality until the left colon and sigmoid junction where a very small polyp was noted, this was excised with cold morcellation technique. Narrow-band imaging confirmed this to be a small polyp. Few diverticula were seen in the sigmoid. Scope was withdrawn and retroflexed view of the rectum was normal. Scope was removed and the patient was taken to the recovery room in good condition. CONCLUDING DIAGNOSES: 1. Small polyp sigmoid, excised. 2. Diverticula. PLAN: Would recommend repeat colonoscopy in 5 years based on current findings and family history of colon cancer in her mother. She will resume her Coumadin today anticipating therapeutic anticoagulation by 3 to 4 days. She will continue with Lovenox bridge therapy starting tomorrow as outlined. MD JAYSHREE Norris/DON /[id number] cc: Denise Ku MD Electronically Signed By: TAURUS LOMELI MD 02/16/24 1052 PATIENT NAME: KATHERINE PRITCHETT OPERATIVE REPORT DATE OF : 43 REPORT #: [id number] PHYSICIAN: TAURUS LOMELI MD PCP: DENISE KU MD REPORT IS CONFIDENTIAL AND NOT TO BE RELEASED WITHOUT AUTHORIZATION [address] [place], [place] [address] Signed Copies: ~ Electronically Signed By: TAURUS LOMELI MD 02/16/24 105 PATIENT NAME: KATHERINE PRITCHETT OPERATIVE REPORT DATE OF : 43 REPORT #: [id number] PHYSICIAN: TAURUS LOMELI MD PCP: DENISE KU MD REPORT IS CONFIDENTIAL AND NOT TO BE RELEASED WITHOUT AUTHORIZATION
== END 2024-02-12 15:28 | disposition home or self-care (01) ==
LOC: DS 11:31 → OPS 11:31 → DS 13:00 → OPS 15:28
PROVIDERS: ATTEND Surgery
PROC: 0DBG8ZX Excision of Left Large Intestine, Via Natural or Artificial Opening Endoscopic, Diagnostic (ICD-10-PCS; principal; 2024-02-12 13:00)
DX: K63.5 Polyp of colon (principal); Z79.01 Long term (current) use of anticoagulants; Z80.0 Family history of malignant neoplasm of digestive organs; Z85.3 Personal history of malignant neoplasm of breast; Z88.2 Allergy status to sulfonamides; Z88.8 Allergy status to other drugs, medicaments and biological substances
CPT/HCPCS: 88305; 99153; G0500; J0290; J1580; J2250; J3010; J7121